=== PATIENT | male | born 1955 | race African-American/Black ===

== ENCOUNTER 2024-06-03 20:33 | Inpatient (IN) | payer OTHER ==
[~2024-06-03] VITALS: Ht 182.9 cm; Wt 77.6 kg
--- NOTE | 2024-06-03 21:16 | ED.PDOC ---
SOB-HPI HPI Comments A 58 year old male presents to the ED with the chief complaint of shortness of breath onset 4 days. Patient states he did Methamphetamine and since then has been experiencing shortness of breath and sore throat. During triage patients O2 sat was 96% on RA. Patient has a past medical history of HTN adn CHF. No other symptoms or modifying factors present at this time. Chief Complaint: Shortness of Breath Time Seen by MD: 20:58 Primary Care Provider: None Reviewed notes: Medications, Allergies Information Source: Patient Mode of Arrival: Ambulatory Severity: Moderate Timing: Days Duration: Since onset History of: CHF Prehospital treatment: None Associated Signs and Symptoms: Sore Throat Past Medical History PAST MEDICAL HISTORY: CHF, HTN Surgical History: Denies all surgeries Family History Family History: Reviewed,noncontributory to illness, No family hx of Cancer, No family hx of DM, No family hx of Heart loco, No family hx of HTN, No family hx ofKidney loco, No family hx of Liver loco, No family hx of Lung loco, No family hx of Stroke Social History Alcohol: Denies ETOH Use Drugs: Methamphetamine Lives In: Home Constitutional: denies: chills, diaphoresis, fatigue, fever, malaise, sweats, weakness, others EENTM: reports: throat pain; denies: blurred vision, double vision, ear bleeding, ear discharge, ear drainage, ear pain, ear ringing, eye pain, eye redness, hearing loss, mouth pain, mouth swelling, nasal discharge, nose bleeding, nose congestion, nose pain, photophobia, tearing, throat swelling, voice changes, others Respiratory: reports: shortness of breath; denies: cough, hemoptysis, orthopnea, SOB at rest, SOB with excertion, stridor, wheezing, others Cardiovascular: denies: chest pain, dizzy spells, diaphoresis, Dyspnea on exertion, edema, irregular heart beat, left arm pain, lightheadedness, palpitations, PND, syncope, others Gastrointestinal: denies: abdomen distended, abdominal pain, blood streaked bowels, constipated, diarrhea, dysphagia, difficulty swallowing, hematemesis, melena, nausea, poor appetite, poor fluid intake, rectal bleeding, rectal pain, vomiting, others Genitourinary: denies: burning, dysuria, flank pain, frequency, hematuria, incontinence, penile discharge, penile sore, pain, testicle pain, testicle swelling, urgency, others Neurological: denies: dizziness, fainting, headache, left sided numbness, left sided weakness, numbness, paresthesia, pre-existing deficit, right sided numbness, right sided weakness, seizure, speech problems, tingling, tremors, weakness, others Musculoskeletal: denies: back pain, gout, joint pain, joint swelling, muscle pain, muscle stiffness, neck pain, others Integumetry: denies: bruises, change in color, change in hair/nails, dryness, laceration, lesions, lumps, rash, wounds, others Allergic/Immunocompromised: denies: Difficulty Healing, Frequent Infections, Hives, Itching, others Hematologic/Lymphatic: denies: anemia, blood clots, easy bleeding, easy bruising, swollen glands, others Endocrine: denies: excessive hunger, excessive sweating, excessive thirst, excessive urination, flushing, intolerance to cold, intolerance to heat, unexplained weight gain, unexplained weight loss, others Psychiatric: denies: anxiety, bipolar disorder, depression, hopeless, panic disorder, schizophrenia, sleepless, suicidal, others All Other Systems: Reviewed and Negative Physical Exam General Appearance: No Apparent Distress, Normal HEENT: Normal ENT Inspection, Pharynx Normal, TMs Normal Neck: Full Range of Motion, Non-Tender, Normal, Normal Inspection Respiratory: Chest Non-Tender, Lungs Clear, No Accessory Muscle Use, No Respiratory Distress, Normal Breath Sounds Cardiovascular: No Edema, No JVD, No Murmur, No Gallop, Normal Peripheral Pulses, Regular Rate/Rhythm Breast Exam: Deferred Gastrointestinal: No Organomegaly, Non Tender, No Pulsatile Mass, Normal Bowel Sounds, Soft Genitalia: Deferred Pelvic: Deferred Rectal: Deferred Extremities: No calf tenderness, Normal capillary refill, Normal inspection, Normal range of motion, Non-tender, No pedal edema Musculoskeletal : Apperance: Normal Neurologic: Alert, interlacer II-XII nml as Tested, No Motor Deficits, Normal Affect, Normal Mood, No Sensory Deficits Cerebellar Function: Normal Reflexes: Normal Skin: Dry, Normal Color, Warm Lymphatic: No Adenopathy Was a procedure done? Was a procedure done?: No Differential Dx Differential Diagnosis: Asthma, Bronchitis, CHF, Myocardial infarction, Pneumonia, Sinusitis X-Ray, Labs, Meds, VS Vital Signs Date Time Temp Pulse Resp B/P (MAP) Pulse Ox O2 Delivery O2 Flow Rate FiO2 06/03/24 20:55 100 06/03/24 20:55 20 96 Room Air* 0 21 06/03/24 20:44 99.3 102 20 177/112 (133) 96 Lab Test 06/03/24 21:57 06/03/24 21:09 Range/Units Troponin I High Sensitivity 23 24 </=54 ng/L White Blood Count 9.1 4.4-10.8 10^3/uL Red Blood Count 4.68 4.5-5.90 10^6/uL Hemoglobin 13.4 L 13.5-17.5 g/dL Hematocrit 40.2 L 41.0-53.0 % Mean Corpuscular Volume 85.8 80.0-100.0 fL Mean Corpuscular Hemoglobin 28.7 28.0-32.0 pg Mean Corpuscular Hemoglobin Concent 33.4 32.0-36.0 g/dL Red Cell Distribution Width 15.1 H 11.8-14.3 % Platelet Count 218 140-450 10^3/uL Mean Platelet Volume 8.2 6.9-10.8 fL Neutrophils (%) (Auto) 67.1 37.0-80.0 % Lymphocytes (%) (Auto) 20.5 10.0-50.0 % Monocytes (%) (Auto) 11.3 0.0-12.0 % Eosinophils (%) (Auto) 0.5 0.0-7.0 % Basophils (%) (Auto) 0.6 0.0-2.0 % Neutrophils # (Auto) 6.1 1.6-8.6 10 ^3/uL Lymphocytes # (Auto) 1.9 0.4-5.4 10 ^3/uL Monocytes # (Auto) 1.0 0-1.3 10 ^3/uL Eosinophils # (Auto) 0 0-0.8 10 ^3/uL Basophils # (Auto) 0.1 0-0.2 10 ^3/uL Nucleated Red Blood Cells 0.1 % Sodium Level 140 136-145 mmol/L Potassium Level 3.8 3.5-5.1 mmol/L Chloride Level 107 98-107 mmol/L Carbon Dioxide Level 28 20-31 mmol/L Anion Gap 5 5-15 Blood Urea Nitrogen 13 9-23 mg/dL Creatinine 1.10 0.700-1.30 mg/dL Glomerular Filtration Rate Calc 73 >90 mL/min BUN/Creatinine Ratio 11.8 10.0-20.0 Serum Glucose 89 74-106 mg/dL Calcium Level 9.8 8.7-10.4 mg/dL B-Type Natriuretic Peptide 239.00 0-100 pg/mL [place] [address] Ph: [phone] DIAGNOSTIC IMAGING Diagnostic Imaging Report : [id number] Signed PATIENT: SEFERINO ALVARENGAACCT: [id number] UNIT: [id number] : 1955 LOC: ER ROOM / BED: / AGE / SEX: 68 / M ADM STATUS: REG ER SERVICE 01 ORDERING PHYSICIAN: BRIE HINES MD PROCEDURE(s): CXR2 - CHEST TWO VIEWS ROUTINE REASON: chest pain, sob ORDER NUMBER(s): [id number], ACCESSION NUMBER(s): [id number] XY CHEST TWO VIEWS ROUTINE CLINICAL HISTORY: chest pain, sob COMPARISON: None TECHNIQUE: Frontal and lateral view of the chest was obtained FINDINGS: Lines and Tubes: None Lungs: No focal consolidation. Minimal blunting of bilateral costophrenic angles. No pneumothorax. Cardiomediastinal contours: Unremarkable Bones: No acute osseous abnormality. IMPRESSION: Minimal blunting of bilateral costophrenic angles which may be from atelectasis. Otherwise, no evidence of acute cardiopulmonary disease. ATED BY: LEONORA BRENNAN DO DICTATED DATE/TIME: 06/03/242128 SIGNED BY: LEONORA BRENNAN DO SIGNED DATE/TIME: 06/03/242128 CC: Time of 1ST Reevaluation: 20:28 Reevaluation 1ST: Unchanged Patient Education/Counseling: Diagnosis, Treatment, Prognosis Family Education/Counseling: No Family Present Departure 1 Departure Time of Disposition: 23:50 (Patient presented with acute shortness of breath concerning for acute on chronic COPD Exacerbation, Pneumonia, ACS, CHF, Pneumothorax. Less likely PE, Dissection. Data: 1. I ordered and reviewed the result of at least 3 labs including a CBC, BMP, and Troponin. 2. I independently interpreted the following tests: Chest X-ray shows likely benign chest .Risk:This patient has a high risk of morbidity due to further diagnostic testing or treatment and may suffer from respiratory or cardiac etiology . W orkup reveals a likely COPD Exacerbation and patient should be admitted for further workup. and possible expert consultation.) Impression: Primary Impression: Chronic obstructive pulmonary disease with (acute) exacerbation Additional Impression: Hypoxia Disposition: ADMITTED INPATIENT Admit to: Med Surg Condition: Serious Critical Care Note Critical Care Time?: Yes Critical care comment: Acute Hypoxia Authorized and Performed by: Brie Hines MD Total critical care time: Approximately 38 minutes Due to a high probability of clinically significant, life threatening deterioration, the patient required my highest level of preparedness to intervene emergently and I personally spent this critical care time directly and personally managing the patient. This critical care time included obtaining a history; examining the patient; pulse oximetry; ordering and review of studies; arranging urgent treatment with development of a management plan; evaluation of patient's response to treatment; frequent reassessment; and, discussions with other providers. This critical care time was performed to assess and manage the high probability of imminent, life-threatening deterioration that could result in multi-organ failure. It was exclusive of separately billable procedures and treating other patients and teaching time. Please see my other sections and the rest of the note for further information on patient assessment and treatment. Stability Stability form required: No Heart Score Heart Score: Heart Score Response (Comments) Value History Moderate Suspicious 1 EKG Repolarization Disturb 1 Age >65 2 Risk Factors >3 or Hx ASHD 2 Troponin Normal limit 0 Total 6 I personally scribed for BRIE HINES MD ([email or web address]) on 06/03/24 at 21:15. Electronically submitted by Tess Dominguez ([email or web address]). I personally scribed for BRIE HINES MD ([email or web address]) on 06/03/24 at 21:40. Electronically submitted by Tess Dominguez ([email or web address]). BRIE HINES MD Jun 03, 2024 21:15
[2024-06-03 21:23] LABS: Basophils # (auto) 0.1 10 ^3/uL (0-0.2); Basophils % (auto) 0.6 % (0.0-2.0); Eosinophils # (auto) 0 10 ^3/uL (0-0.8); Eosinophils % (auto) 0.5 % (0.0-7.0); Hematocrit 40.2 % (41.0-53.0); Hemoglobin 13.4 g/dL (13.5-17.5); Lymphocytes # (auto) 1.9 10 ^3/uL (0.4-5.4); Lymphocytes % (auto) 20.5 % (10.0-50.0); Mean Corpuscular Hemoglobin 28.7 pg (28.0-32.0); Mean Corpuscular Hgb Conc. 33.4 g/dL (32.0-36.0); Mean Corpuscular Volume 85.8 fL (80.0-100.0); Monocytes % (auto) 11.3 % (0.0-12.0); Neutrophils # (auto) 6.1 10 ^3/uL (1.6-8.6); Neutrophils % (auto) 67.1 % (37.0-80.0); Nucleated Red Blood Cells % 0.1 %; Platelet Count (auto) 218 10^3/uL (140-450); Red Blood Cells 4.68 10^6/uL (4.5-5.90); Red Cell Distribution Width 15.1 % (11.8-14.3); White Blood Cell 9.1 10^3/uL (4.4-10.8)
[2024-06-03 21:32] LABS: Chloride 107 mmol/L (98-107); Potassium 3.8 mmol/L (3.5-5.1); Sodium 140 mmol/L (136-145)
--- NOTE | 2024-06-03 21:32 | DVH ---
XY CHEST TWO VIEWS ROUTINE CLINICAL HISTORY: chest pain, sob COMPARISON: None TECHNIQUE: Frontal and lateral view of the chest was obtained FINDINGS: Lines and Tubes: None Lungs: No focal consolidation. Minimal blunting of bilateral costophrenic angles. No pneumothorax. Cardiomediastinal contours: Unremarkable Bones: No acute osseous abnormality. IMPRESSION: Minimal blunting of bilateral costophrenic angles which may be from atelectasis. Otherwise, no evide nce of acute cardiopulmonary disease.
[2024-06-03 21:33] LABS: Anion Gap 5 (5-15); Calcium 9.8 mg/dL (8.7-10.4); Carbon Dioxide 28 mmol/L (20-31)
[2024-06-03 21:38] LABS: BUN/Creatinine Ratio 11.8 (10.0-20.0); Blood Urea Nitrogen 13 mg/dL (9-23); Glucose 89 mg/dL (74-106)
[2024-06-04] VITALS (7 sets, daily range): BP systolic 132–160; BP diastolic 82–97; PULSE 18–104; RESP 14–25; TEMP 98–98.7; O2SAT 94–97
[2024-06-04] MEDS: ACETAMINOPHEN 325 MG TAB PO ONE ×2 (03:30→07:55)
[2024-06-04 07:33] LABS: Urine Bacteria None Seen /hpf (None Seen)
[2024-06-04 08:18] LABS: Urine Blood Negative /uL (Negative); Urine Clarity Clear (Clear); Urine Color Yellow (Yellow); Urine Mucus FEW (None Seen); Urine Protein, UAD 1+ (Negative); Urine Specific Gravity 1.031 (1.001-1.035); Urine Urobilinogen 3 mg/dL (Negative); Urine WBC 31 /hpf (0 - 3)
[2024-06-04 08:30] LABS: Amphetamine Screen, Urine Pos (NEGATIVE); Barbiturate Scree,Urine Neg (NEGATIVE); Benzodiazephine Screen, Urine Neg (NEGATIVE); Cocaine Screen, Urine Neg (NEGATIVE)
[2024-06-04 08:31] LABS: Cannabinoid Screen, Urine Pos (NEGATIVE); Opiate Scree,Urine Neg (NEGATIVE); Phencyclidine Screen, Urine Neg (NEGATIVE)
--- NOTE | 2024-06-04 09:36 | ECG ---
[facility] Test Date: 2024-06-03 Test Time: 20:55:40 Pat Name: SEFERINO ALVARENGA Department: ER Room: [address] [place] [address] Gender: M [employer]: BERT : 1955 Requested By: BRIE NOLEN Order Number: [id number] Reading MD: Trung Vega Measurements Intervals [place] Rate: 100 P: 60 SD: 163 QRS: -28 QRSD: 110 T: 16 QT: 339 QTc: 438 Interpretive Statements Sinus tachycardia LVH with secondary repolarization abnormality Anterior ST elevation, probably due to LVH Electronically Signed On 06-05-2024 12:40:54 PST by Trung Vega Please click the below link to view image of tracing.
[2024-06-04] MEDS ORDERED: DOCUSATE SOD 100 MG CAP PO PRN (11:15)
[2024-06-04] MEDS ORDERED: MORPHINE SULFATE INJ 2 MG/ml SYRG IV PRN (11:15)
[2024-06-04] MEDS ORDERED: LISI10TA34 PO (11:15)
[2024-06-04] MEDS ORDERED: CARV6.2551 PO (11:15)
[2024-06-04] MEDS ORDERED: ACETAMINOPHEN 325 MG TAB PO PRN (11:15)
[2024-06-04] MEDS ORDERED: ONDANSETRON HCL 4 MG/2 ML VIAL IV PRN (11:15)
[2024-06-04] MEDS ORDERED: NITROGLYCERIN 0.4 MG SL TAB SL PRN (11:15)
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
[2024-06-04] MEDS: LISINOPRIL 5 MG TAB PO ONE (12:33)
[2024-06-04] MEDS: methylPREDNISolone SOD SUCC 40 MG/ML VL IV SCH (12:33)
[2024-06-04] MEDS: CARVEDILOL 3.125 MG TAB PO ONE (12:33)
[2024-06-04] MEDS: SODIUM CHLOR 0.9% PF (SALINE LOCK) 10ML VIAL/SYR IV SCH (14:00)
[2024-06-04] MEDS: AZITHROMYCIN 500MG/ 250ML 250 ML IV ONE (17:35)
[2024-06-04] MEDS: HYDROcodone-ACET 5/325MG TAB PO PRN (21:33)
[2024-06-04] MEDS: MONTELUKAST SODIUM 10 MG TAB PO SCH (21:34)
[2024-06-04] MEDS: CARVEDILOL 3.125 MG TAB PO SCH (21:35)
[2024-06-05] VITALS (12 sets, daily range): BP systolic 122–164; BP diastolic 77–97; PULSE 78–93; RESP 15–19; TEMP 97.8–98.5; O2SAT 90–98
[2024-06-05 05:40] LABS: Basophils # (auto) 0 10 ^3/uL (0-0.2); Basophils % (auto) 0.1 % (0.0-2.0); Eosinophils # (auto) 0 10 ^3/uL (0-0.8); Hematocrit 38.1 % (41.0-53.0); Hemoglobin 12.5 g/dL (13.5-17.5); Lymphocytes # (auto) 0.9 10 ^3/uL (0.4-5.4); Lymphocytes % (auto) 8.4 % (10.0-50.0); Mean Corpuscular Hemoglobin 28.4 pg (28.0-32.0); Mean Corpuscular Hgb Conc. 32.9 g/dL (32.0-36.0); Mean Corpuscular Volume 86.2 fL (80.0-100.0); Monocytes # (auto) 0.3 10 ^3/uL (0-1.3); Monocytes % (auto) 2.7 % (0.0-12.0); Neutrophils # (auto) 9.5 10 ^3/uL (1.6-8.6); Neutrophils % (auto) 88.8 % (37.0-80.0); Platelet Count (auto) 241 10^3/uL (140-450); Red Blood Cells 4.42 10^6/uL (4.5-5.90); Red Cell Distribution Width 14.7 % (11.8-14.3); White Blood Cell 10.7 10^3/uL (4.4-10.8)
[2024-06-05 05:52] LABS: Alanine Aminotransferase 11 U/L (7-40); Albumin 4.1 g/dL (3.2-4.8); Alkaline Phosphatase 77 U/L (46-116); Anion Gap 6 (5-15); Aspartate Aminotransferase 8 U/L (13-40); BUN/Creatinine Ratio 16.3 (10.0-20.0); Bilirubin, Total 0.5 mg/dL (0.2-1.0); Blood Urea Nitrogen 17 mg/dL (9-23); Calcium 9.8 mg/dL (8.7-10.4); Carbon Dioxide 28 mmol/L (20-31); Chloride 105 mmol/L (98-107); Glucose 154 mg/dL (74-106); Sodium 139 mmol/L (136-145); Total Protein 7.4 g/dL (5.7-8.2)
[2024-06-05] MEDS: LISINOPRIL 5 MG TAB PO SCH (08:54)
[2024-06-05] MEDS: THROAT LOZENGES(CEPASTAT) MT PRN (08:55)
[2024-06-05] MEDS: AZITHROMYCIN 500MG/ 250ML 250 ML IV SCH (08:55)
--- NOTE | 2024-06-05 11:20 | DVHPN2 ---
Subjective The patient is seen and examined at bedside. Complain of severe shortness of breath and he feels like his throat is closing because of phlegm. Reviewed: Care Plan, H&P, Labs, Medications, Previous Orders, Radiology Changes from previous H/P or p: No Changes Eyes: No Pain, No Vision change, No Conjunctivae inflammation, No Eyelid inflammation, No Other, No Redness ENT: No Ear pain, No Ear discharge, No Nose pain, No Nose discharge, No Nose congestion, No Mouth pain, No Mouth swelling, No Throat pain, No Throat swelling, No Other Cardiovascular: No Chest Pain, No Palpitations, No Orthopnea, No Paroxysmal Noc. Dyspnea, No Edema, No Lt Headedness, No Other Respiratory: No Cough, No Dry; Shortness of breath, SOB with excertion, W heezing; No Hemoptysis, No Pleuritic Pain, No Sputum, No Other Gastrointestinal: No Nausea, No Vomiting, No Abdominal Pain, No Diarrhea, No Constipation, No Melena, No Hematochezia, No Other Genitourinary: No Dysuria, No Frequency, No Incontinence, No Hematuria, No Retention, No Other Musculoskeletal: No other, No neck pain, No shoulder pain, No arm pain, No back pain, No hand pain, No leg pain, No foot pain Skin: No Rash, No Lesions, No Jaundice, No Bruising, No Other Objective Vitals Vital Signs Date Time Temp Pulse Resp B/P (MAP) Pulse Ox O2 Delivery O2 Flow Rate FiO2 06/05/24 10:00 91 Room Air* 0 21 06/05/24 09:26 98.5 93 17 145/77 (99) 98.5 Intake/Output Intake and Output 06/05/24 07:00 Intake Total 1925 ml Output Total 600 ml Balance 1325 ml Intake Oral 1675 ml IV Total 250 ml Output Urine Total 600 ml # Voids 1 General Appearance: Alert, Oriented X3, Cooperative, No acute distress HEENT: Atraumatic, PERRLA, EOMI, Mucous membr. moist/pink Neck: Supple Lungs: Clear to auscultation, Normal air movement Cardiovascular: Regular rate, Normal S1, Normal S2, No murmurs, Gallops, Rubs Abdomen: Normal bowel sounds, Soft, No tenderness, No hepatospenomegaly Neuro: Cranial nerves 3-12 NL Psych/Mental Status: Mental status NL Medications Current Medications Medications Dose Ordered Sig/Haley Route Start Time Stop Time Status Last Admin Dose Admin Sodium Chloride 10 ml Q8HR IV 06/04/24 14:00 06/05/24 05:16 10 ML Acetaminophen/ Hydrocodone Bitart 1 tab Q4HP PRN PO 06/04/24 11:15 06/05/24 02:16 1 TAB Ondansetron HCl 4 mg Q4HP PRN IV 06/04/24 11:15 Docusate Sodium 100 mg BIDPRN PRN PO 06/04/24 11:15 Acetaminophen 650 mg Q6HP PRN PO 06/04/24 11:15 Nitroglycerin 0.4 mg Q5MINP PRN SL 06/04/24 11:15 Morphine Sulfate 2 mg Q30M PRN IV 06/04/24 11:15 Ipratropium [place] 0.5 mg Q4HPRN PRN NEB 06/04/24 11:15 Albuterol 2.5 mg Q4HPRN PRN NEB 06/04/24 11:15 Montelukast Sodium 10 mg HS PO 06/04/24 22:00 06/04/24 21:34 10 MG Methylprednisolone Sodium Succinate 40 mg BID IV 06/04/24 11:15 06/05/24 08:52 40 MG Carvedilol 6.25 mg BID PO 06/04/24 22:00 06/05/24 08:53 6.25 MG Lisinopril 10 mg DAILY PO 06/05/24 10:00 06/05/24 08:54 10 MG Azithromycin 250 ml @ 125 mls/hr DAILY IV 06/05/24 10:00 06/05/24 08:55 125 MLS/HR Throat Lozenges 1 ana maria Q2HP PRN MT 06/04/24 19:30 06/05/24 08:55 1 ANA MARIA Laboratory Results Laboratory Tests 06/05/24 05:11 Chemistry Test 06/05/24 05:11 Albumin 4.1 g/dL (3.2-4.8) Calcium Level 9.8 mg/dL (8.7-10.4) Total Protein 7.4 g/dL (5.7-8.2) LFT Test 06/05/24 05:11 Alanine Aminotransferase (ALT) 11 U/L (7-40) Alkaline Phosphatase 77 U/L (46-116) Aspartate Amino Transferase (AST) 8 U/L (13-40) L Total Bilirubin 0.5 mg/dL (0.2-1.0) Urinalysis Test 06/04/24 06:40 Urine Color Yellow (Yellow) Urine Clarity Clear (Clear) Urine pH 6.0 (5.0-9.0) Urine Specific [place] 1.031 (1.001-1.035) Urine Protein 1+ (Negative) H Urine Ketones 2+ (Negative) H Urine Blood Negative /uL (Negative) Urine Nitrite Negative (Negative) Urine Bilirubin Negative (Negative) Urine Urobilinogen 3 mg/dL (Negative) H Urine Leukocyte Esterase 1+ /uL (Negative) Urine RBC 3 /hpf (0 - 3) Urine WBC 31 /hpf (0 - 3) Urine Squamous Epithelial Cells Few /hpf (<5) Urine Bacteria None seen /hpf (None Seen) Urine Mucus Few (None Seen) Urine Glucose Normal mg/dL (Normal) Labs and/or images reviewed: Labs reviewed by me Assessment/Plan Assessment/Plan Chronic obstructive pulmonary disease with (acute) exacerbation, CHF, Hypertension, Poly substance abuse, Continuing current management. Continuing with Solu-Medrol, DuoNeb, and IV antibiotic. And looking his throat is just some erytherma but no edema. I will give patient Cepacol lozenges. Continuing hypertensive medication. Advised the patient's stop using drugs Plan discussed with: Patient Date of Service: Jun 05, 2024 Billing Provider: MICHELLE ADAMS MD Common Visit Codes: [id number] INP/OBS CARE(HIGH) MICHELLE ADAMS MD Jun 05, 2024 11:20
[2024-06-05] MEDS: hydrALAZINE HCL 20 MG/ML VL IV PRN (14:12)
[2024-06-05] MEDS: IPRATROPIUM BROM 0.5 MG/2.5ML INH SOL ONE (20:43)
[2024-06-05] MEDS: ALBUTEROL SULF 2.5 MG/0.5ML(0.5%) NEB SOLN ONE (20:59)
[2024-06-06] VITALS (11 sets, daily range): BP systolic 146–172; BP diastolic 82–111; PULSE 60–86; RESP 18–22; TEMP 97.1–98.6; O2SAT 92–100
--- NOTE | 2024-06-06 11:56 | DVHPN2 ---
Subjective The patient is seen and examined at bedside. Still complain a lot of cough and phlegm. Complained of sore throat and lozenges did not help per patient Reviewed: Care Plan, H&P, Labs, Medications, Previous Orders Changes from previous H/P or p: No Changes Eyes: No Pain, No Vision change, No Conjunctivae inflammation, No Eyelid inflammation, No Other, No Redness ENT: No Ear pain, No Ear discharge, No Nose pain, No Nose discharge, No Nose congestion, No Mouth pain, No Mouth swelling, No Throat pain, No Throat swelling, No Other Cardiovascular: No Chest Pain, No Palpitations, No Orthopnea, No Paroxysmal Noc. Dyspnea, No Edema, No Lt Headedness, No Other Respiratory: No Cough, No Dry; Shortness of breath, SOB with excertion, W heezing; No Hemoptysis, No Pleuritic Pain, No Sputum, No Other Gastrointestinal: No Nausea, No Vomiting, No Abdominal Pain, No Diarrhea, No Constipation, No Melena, No Hematochezia, No Other Genitourinary: No Dysuria, No Frequency, No Incontinence, No Hematuria, No Retention, No Other Musculoskeletal: No other, No neck pain, No shoulder pain, No arm pain, No back pain, No hand pain, No leg pain, No foot pain Skin: No Rash, No Lesions, No Jaundice, No Bruising, No Other Objective Vitals Vital Signs Date Time Temp Pulse Resp B/P (MAP) Pulse Ox O2 Delivery O2 Flow Rate FiO2 06/06/24 10:45 152/82 06/06/24 10:44 84 06/06/24 10:00 92 Room Air* 0 21 06/06/24 09:00 98.6 20 98.6 Intake/Output Intake and Output 06/06/24 07:00 Intake Total 2122 ml Balance 2122 ml Intake Oral 1872 ml IV Total 250 ml # Voids 6 General Appearance: Alert, Oriented X3, Cooperative, No acute distress HEENT: Atraumatic, PERRLA, EOMI, Mucous membr. moist/pink Neck: Supple Lungs: Clear to auscultation, Normal air movement Cardiovascular: Regular rate, Normal S1, Normal S2, No murmurs, Gallops, Rubs Abdomen: Normal bowel sounds, Soft, No tenderness, No hepatospenomegaly Neuro: Cranial nerves 3-12 NL Psych/Mental Status: Mental status NL Medications Current Medications Medications Dose Ordered Sig/Haley Route Start Time Stop Time Status Last Admin Dose Admin Sodium Chloride 10 ml Q8HR IV 06/04/24 14:00 06/06/24 06:25 10 ML Acetaminophen/ Hydrocodone Bitart 1 tab Q4HP PRN PO 06/04/24 11:15 06/06/24 10:46 1 TAB Ondansetron HCl 4 mg Q4HP PRN IV 06/04/24 11:15 Docusate Sodium 100 mg BIDPRN PRN PO 06/04/24 11:15 Acetaminophen 650 mg Q6HP PRN PO 06/04/24 11:15 Nitroglycerin 0.4 mg Q5MINP PRN SL 06/04/24 11:15 Morphine Sulfate 2 mg Q30M PRN IV 06/04/24 11:15 Ipratropium [place] 0.5 mg Q4HPRN PRN NEB 06/04/24 11:15 Albuterol 2.5 mg Q4HPRN PRN NEB 06/04/24 11:15 Montelukast Sodium 10 mg HS PO 06/04/24 22:00 06/05/24 21:55 10 MG Methylprednisolone Sodium Succinate 40 mg BID IV 06/04/24 11:15 06/06/24 10:42 40 MG Carvedilol 6.25 mg BID PO 06/04/24 22:00 06/06/24 10:44 6.25 MG Lisinopril 10 mg DAILY PO 06/05/24 10:00 06/06/24 10:45 10 MG Azithromycin 250 ml @ 125 mls/hr DAILY IV 06/05/24 10:00 06/06/24 10:42 125 MLS/HR Throat Lozenges 1 ana maria Q2HP PRN MT 06/04/24 19:30 06/06/24 01:07 1 ANA MARIA Hydralazine HCl 10 mg Q6HP PRN IV 06/05/24 13:15 06/05/24 14:12 10 MG Laboratory Results Laboratory Tests 06/05/24 05:11 Urinalysis Test 06/04/24 06:40 Urine Color Yellow (Yellow) Urine Clarity Clear (Clear) Urine pH 6.0 (5.0-9.0) Urine Specific [place] 1.031 (1.001-1.035) Urine Protein 1+ (Negative) H Urine Ketones 2+ (Negative) H Urine Blood Negative /uL (Negative) Urine Nitrite Negative (Negative) Urine Bilirubin Negative (Negative) Urine Urobilinogen 3 mg/dL (Negative) H Urine Leukocyte Esterase 1+ /uL (Negative) Urine RBC 3 /hpf (0 - 3) Urine WBC 31 /hpf (0 - 3) Urine Squamous Epithelial Cells Few /hpf (<5) Urine Bacteria None seen /hpf (None Seen) Urine Mucus Few (None Seen) Urine Glucose Normal mg/dL (Normal) Labs and/or images reviewed: Labs reviewed by me Assessment/Plan Assessment/Plan Chronic obstructive pulmonary disease with (acute) exacerbation, CHF, Hypertension, Poly substance abuse, Continuing current management. Continuing with IV antibiotic Rocephin and Zithromax. Continuing with hypertensive medication. Continuing with Lasix. Continuing with DuoNeb every 6 hours as needed. Plan discussed with: Patient My Orders Orders - MICHELLE ADAMS MD Procedure Category Date Status Time Hydralazine Injection PHA 06/05/24 In Process (Apresoline Inject 13:15 Date of Service: Jun 06, 2024 Billing Provider: MICHELLE ADAMS MD Common Visit Codes: [id number] INP/OBS CARE(HIGH) MICHELLE ADAMS MD Jun 06, 2024 11:56
--- NOTE | 2024-06-06 14:16 | MEDREC ---
[facility] Intervention Section I [facility] Intervention: IV to PO conversion (PLEASE CONSIDER SWITCHING AZITHROMYCIN FROM IV TO PO FOR COPD EXACERBATION IF PATIENT CAN TOLERATE ) SAMARA GAO Jun 06, 2024 14:16
[2024-06-07] VITALS (9 sets, daily range): BP systolic 122–166; BP diastolic 66–98; PULSE 49–80; RESP 16–20; TEMP 97.4–97.9; O2SAT 92–98
[2024-06-07] MEDS: AZITHROMYCIN 250 MG TAB PO SCH (13:56)
--- NOTE | 2024-06-07 14:27 | DVHPN2 ---
Subjective The patient is seen and examined at bedside. Today he feels little bit better. Less shortness for breath. Less phlegm. Reviewed: Care Plan, H&P, Labs, Medications, Previous Orders, Radiology Changes from previous H/P or p: No Changes Eyes: No Pain, No Vision change, No Conjunctivae inflammation, No Eyelid inflammation, No Other, No Redness ENT: No Ear pain, No Ear discharge, No Nose pain, No Nose discharge, No Nose congestion, No Mouth pain, No Mouth swelling, No Throat pain, No Throat swelling, No Other Cardiovascular: No Chest Pain, No Palpitations, No Orthopnea, No Paroxysmal Noc. Dyspnea, No Edema, No Lt Headedness, No Other Respiratory: No Cough, No Dry; Shortness of breath, SOB with excertion, W heezing; No Hemoptysis, No Pleuritic Pain, No Sputum, No Other Gastrointestinal: No Nausea, No Vomiting, No Abdominal Pain, No Diarrhea, No Constipation, No Melena, No Hematochezia, No Other Genitourinary: No Dysuria, No Frequency, No Incontinence, No Hematuria, No Retention, No Other Musculoskeletal: No other, No neck pain, No shoulder pain, No arm pain, No back pain, No hand pain, No leg pain, No foot pain Skin: No Rash, No Lesions, No Jaundice, No Bruising, No Other Objective Vitals Vital Signs Date Time Temp Pulse Resp B/P (MAP) Pulse Ox O2 Delivery O2 Flow Rate FiO2 06/07/24 13:01 97.9 49 19 149/91 (110) 96 97.9 06/07/24 10:00 Room Air 0.0 06/07/24 10:00 21 Intake/Output Intake and Output 06/07/24 07:00 Intake Total 2520 ml Balance 2520 ml Intake Oral 2270 ml IV Total 250 ml # Voids 11 General Appearance: Alert, Oriented X3, Cooperative, No acute distress HEENT: Atraumatic, PERRLA, EOMI, Mucous membr. moist/pink Neck: Supple Lungs: Clear to auscultation, Normal air movement Cardiovascular: Regular rate, Normal S1, Normal S2, No murmurs, Gallops, Rubs Abdomen: Normal bowel sounds, Soft, No tenderness Neuro: Cranial nerves 3-12 NL Psych/Mental Status: Mental status NL Medications Current Medications Medications Dose Ordered Sig/Halye Route Start Time Stop Time Status Last Admin Dose Admin Sodium Chloride 10 ml Q8HR IV 06/04/24 14:00 06/07/24 13:09 10 ML Acetaminophen/ Hydrocodone Bitart 1 tab Q4HP PRN PO 06/04/24 11:15 06/07/24 13:56 1 TAB Ondansetron HCl 4 mg Q4HP PRN IV 06/04/24 11:15 Docusate Sodium 100 mg BIDPRN PRN PO 06/04/24 11:15 Acetaminophen 650 mg Q6HP PRN PO 06/04/24 11:15 Nitroglycerin 0.4 mg Q5MINP PRN SL 06/04/24 11:15 Morphine Sulfate 2 mg Q30M PRN IV 06/04/24 11:15 Ipratropium [place] 0.5 mg Q4HPRN PRN NEB 06/04/24 11:15 Albuterol 2.5 mg Q4HPRN PRN NEB 06/04/24 11:15 Montelukast Sodium 10 mg HS PO 06/04/24 22:00 06/06/24 22:23 10 MG Methylprednisolone Sodium Succinate 40 mg BID IV 06/04/24 11:15 06/07/24 09:29 40 MG Carvedilol 6.25 mg BID PO 06/04/24 22:00 06/07/24 09:28 6.25 MG Lisinopril 10 mg DAILY PO 06/05/24 10:00 06/07/24 09:29 10 MG Hydralazine HCl 10 mg Q6HP PRN IV 06/05/24 13:15 06/05/24 14:12 10 MG Throat Lozenges 1 jaya Q2HP PRN MT 06/06/24 13:15 Azithromycin 500 mg DAILY PO 06/07/24 14:00 06/07/24 13:56 500 MG Laboratory Results Laboratory Tests 06/05/24 05:11 Urinalysis Test 06/04/24 06:40 Urine Color Yellow (Yellow) Urine Clarity Clear (Clear) Urine pH 6.0 (5.0-9.0) Urine Specific [place] 1.031 (1.001-1.035) Urine Protein 1+ (Negative) H Urine Ketones 2+ (Negative) H Urine Blood Negative /uL (Negative) Urine Nitrite Negative (Negative) Urine Bilirubin Negative (Negative) Urine Urobilinogen 3 mg/dL (Negative) H Urine Leukocyte Esterase 1+ /uL (Negative) Urine RBC 3 /hpf (0 - 3) Urine WBC 31 /hpf (0 - 3) Urine Squamous Epithelial Cells Few /hpf (<5) Urine Bacteria None seen /hpf (None Seen) Urine Mucus Few (None Seen) Urine Glucose Normal mg/dL (Normal) Labs and/or images reviewed: Labs reviewed by me Assessment/Plan Assessment/Plan Chronic obstructive pulmonary disease with (acute) exacerbation, CHF, Hypertension, Poly substance abuse, Continuing current management. Continuing with Lasix. Continuing with IV antibiotic Rocephin and Zithromax. Continuing with Solu-Medrol. Continuing with nebulizer. Advised stop using drugs. Continuing hypertensive medication. Discharge planning. Plan discussed with: Patient My Orders Orders - MICHELLE ADAMS MD Procedure Category Date Status Time Azithromycin Tablet PHA 06/07/24 In Process (Zithromax Tablet) 14:00 Date of Service: Jun 08, 2024 Billing Provider: MICHELLE ADAMS MD Common Visit Codes: [id number] INP/OBS CARE(HIGH) MICHELLE ADAMS MD Jun 07, 2024 14:27
[2024-06-08] VITALS (12 sets, daily range): BP systolic 129–157; BP diastolic 66–104; PULSE 71–100; RESP 15–20; TEMP 98.1–98.5; O2SAT 94–99
[2024-06-08] MEDS: ALBUTEROL SULF 2.5 MG/0.5ML(0.5%) NEB SOLN NEB PRN (07:48)
[2024-06-08] MEDS: IPRATROPIUM BROM 0.5 MG/2.5ML INH SOL NEB PRN (07:51)
[2024-06-08] MEDS ORDERED: AZITHROMYCIN 250 MG TAB PO SCH (10:00)
[2024-06-08] MEDS: THROAT LOZENGES(CEPASTAT) MT PRN (21:07)
--- NOTE | 2024-06-08 23:02 | DVHPN2 ---
Subjective The patient is seen and examined at bedside. Feel better today. The patient is still have a little shortness for breath but able to ambulate to the door. Reviewed: Care Plan, H&P, Labs, Medications, Previous Orders Changes from previous H/P or p: No Changes Eyes: No Pain, No Vision change, No Conjunctivae inflammation, No Eyelid inflammation, No Other, No Redness ENT: No Ear pain, No Ear discharge, No Nose pain, No Nose discharge, No Nose congestion, No Mouth pain, No Mouth swelling, No Throat pain, No Throat swelling, No Other Cardiovascular: No Chest Pain, No Palpitations, No Orthopnea, No Paroxysmal Noc. Dyspnea, No Edema, No Lt Headedness, No Other Respiratory: No Cough, No Dry; Shortness of breath, SOB with excertion, W heezing; No Hemoptysis, No Pleuritic Pain, No Sputum, No Other Gastrointestinal: No Nausea, No Vomiting, No Abdominal Pain, No Diarrhea, No Constipation, No Melena, No Hematochezia, No Other Genitourinary: No Dysuria, No Frequency, No Incontinence, No Hematuria, No Retention, No Other Musculoskeletal: No other, No neck pain, No shoulder pain, No arm pain, No back pain, No hand pain, No leg pain, No foot pain Skin: No Rash, No Lesions, No Jaundice, No Bruising, No Other Objective Vitals Vital Signs Date Time Temp Pulse Resp B/P (MAP) Pulse Ox O2 Delivery O2 Flow Rate FiO2 06/08/24 21:07 100 156/91 06/08/24 21:00 98.1 18 96 98.1 06/08/24 20:00 Room Air* 0 21 Intake/Output Intake and Output 06/08/24 07:00 Intake Total 2880 ml Balance 2880 ml Intake Oral 2880 ml # Voids 5 # Bowel Movements 2 General Appearance: Alert, Oriented X3, Cooperative, No acute distress HEENT: Atraumatic, PERRLA, EOMI, Mucous membr. moist/pink Neck: Supple Lungs: Clear to auscultation, Normal air movement Cardiovascular: Regular rate, Normal S1, Normal S2, No murmurs, Gallops, Rubs Abdomen: Normal bowel sounds, Soft, No tenderness Neuro: Cranial nerves 3-12 NL Psych/Mental Status: Mental status NL Medications Current Medications Medications Dose Ordered Sig/Haley Route Start Time Stop Time Status Last Admin Dose Admin Sodium Chloride 10 ml Q8HR IV 06/04/24 14:00 06/08/24 21:06 10 ML Acetaminophen/ Hydrocodone Bitart 1 tab Q4HP PRN PO 06/04/24 11:15 06/08/24 10:11 1 TAB Ondansetron HCl 4 mg Q4HP PRN IV 06/04/24 11:15 Docusate Sodium 100 mg BIDPRN PRN PO 06/04/24 11:15 Acetaminophen 650 mg Q6HP PRN PO 06/04/24 11:15 Nitroglycerin 0.4 mg Q5MINP PRN SL 06/04/24 11:15 Morphine Sulfate 2 mg Q30M PRN IV 06/04/24 11:15 Ipratropium [place] 0.5 mg Q4HPRN PRN NEB 06/04/24 11:15 06/08/24 07:51 0.5 MG Albuterol 2.5 mg Q4HPRN PRN NEB 06/04/24 11:15 06/08/24 07:48 2.5 MG Montelukast Sodium 10 mg HS PO 06/04/24 22:00 06/08/24 21:06 10 MG Methylprednisolone Sodium Succinate 40 mg BID IV 06/04/24 11:15 06/08/24 21:06 40 MG Carvedilol 6.25 mg BID PO 06/04/24 22:00 06/08/24 21:07 6.25 MG Lisinopril 10 mg DAILY PO 06/05/24 10:00 06/08/24 10:09 10 MG Hydralazine HCl 10 mg Q6HP PRN IV 06/05/24 13:15 06/08/24 18:27 10 MG Throat Lozenges 1 ana maria Q2HP PRN MT 06/06/24 13:15 06/08/24 21:07 1 ANA MARIA Azithromycin 500 mg DAILY PO 06/07/24 14:00 06/08/24 10:09 500 MG Laboratory Results Laboratory Tests 06/05/24 05:11 Urinalysis Test 06/04/24 06:40 Urine Color Yellow (Yellow) Urine Clarity Clear (Clear) Urine pH 6.0 (5.0-9.0) Urine Specific [place] 1.031 (1.001-1.035) Urine Protein 1+ (Negative) H Urine Ketones 2+ (Negative) H Urine Blood Negative /uL (Negative) Urine Nitrite Negative (Negative) Urine Bilirubin Negative (Negative) Urine Urobilinogen 3 mg/dL (Negative) H Urine Leukocyte Esterase 1+ /uL (Negative) Urine RBC 3 /hpf (0 - 3) Urine WBC 31 /hpf (0 - 3) Urine Squamous Epithelial Cells Few /hpf (<5) Urine Bacteria None seen /hpf (None Seen) Urine Mucus Few (None Seen) Urine Glucose Normal mg/dL (Normal) Labs and/or images reviewed: Labs reviewed by me Assessment/Plan Assessment/Plan Chronic obstructive pulmonary disease with (acute) exacerbation, CHF, Hypertension, Poly substance abuse, Continuing current management. Continuing with Lasix. Continuing with IV antibiotic Rocephin and Zithromax. Continuing with Solu-Medrol. Continuing with nebulizer. Advised stop using drugs. Continuing hypertensive medication. Discharge planning. Plan discussed with: Patient Date of Service: Jun 08, 2024 Billing Provider: MICHELLE ADAMS MD Common Visit Codes: [id number] INP/OBS CARE(HIGH) MICHELLE ADAMS MD Jun 08, 2024 23:02
[2024-06-09] VITALS (7 sets, daily range): BP systolic 141–174; BP diastolic 84–102; PULSE 73–81; RESP 17–20; TEMP 97.8–98.5; O2SAT 94–99
[2024-06-09] MEDS ORDERED: AZIT-185 PO (11:25)
[2024-06-09] MEDS ORDERED: METH4PAK PO (11:25)
--- NOTE | 2024-06-09 11:27 | DVHDS2 ---
Discharge Summary Date of Admission Jun 04, 2024 at 11:06 Date of Discharge: Jun 09, 2024 Admitting Diagnosis Chronic obstructive pulmonary disease with (acute) exacerbation, CHF, Hypertension, Poly substance abuse, Labs/Diagnostic Data: Laboratory Results Test 06/05/24 05:11 06/04/24 06:40 06/04/24 00:10 06/03/24 21:09 White Blood Count 10.7 10^3/uL (4.4-10.8) Red Blood Count 4.42 10^6/uL (4.5-5.90) Hemoglobin 12.5 g/dL (13.5-17.5) Hematocrit 38.1 % (41.0-53.0) Mean Corpuscular Volume 86.2 fL (80.0-100.0) Mean Corpuscular Hemoglobin 28.4 pg (28.0-32.0) Mean Corpuscular Hemoglobin Concent 32.9 g/dL (32.0-36.0) Red Cell Distribution Width 14.7 % (11.8-14.3) Platelet Count 241 10^3/uL (140-450) Mean Platelet Volume 7.9 fL (6.9-10.8) Neutrophils (%) (Auto) 88.8 % (37.0-80.0) Lymphocytes (%) (Auto) 8.4 % (10.0-50.0) Monocytes (%) (Auto) 2.7 % (0.0-12.0) Eosinophils (%) (Auto) 0.0 % (0.0-7.0) Basophils (%) (Auto) 0.1 % (0.0-2.0) Neutrophils # (Auto) 9.5 10 ^3/uL (1.6-8.6) Lymphocytes # (Auto) 0.9 10 ^3/uL (0.4-5.4) Monocytes # (Auto) 0.3 10 ^3/uL (0-1.3) Eosinophils # (Auto) 0 10 ^3/uL (0-0.8) Basophils # (Auto) 0 10 ^3/uL (0-0.2) Nucleated Red Blood Cells 0.0 % Sodium Level 139 mmol/L (136-145) Potassium Level 4.0 mmol/L (3.5-5.1) Chloride Level 105 mmol/L (98-107) Carbon Dioxide Level 28 mmol/L (20-31) Anion Gap 6 (5-15) Blood Urea Nitrogen 17 mg/dL (9-23) Creatinine 1.04 mg/dL (0.700-1.30) Glomerular Filtration Rate Calc 78 mL/min (>90) BUN/Creatinine Ratio 16.3 (10.0-20.0) Serum Glucose 154 mg/dL (74-106) Calcium Level 9.8 mg/dL (8.7-10.4) Total Bilirubin 0.5 mg/dL (0.2-1.0) Aspartate Amino Transferase (AST) 8 U/L (13-40) Alanine Aminotransferase (ALT) 11 U/L (7-40) Alkaline Phosphatase 77 U/L (46-116) Total Protein 7.4 g/dL (5.7-8.2) Albumin 4.1 g/dL (3.2-4.8) Urine Color Yellow (Yellow) Urine Clarity Clear (Clear) Urine pH 6.0 (5.0-9.0) Urine Specific [place] 1.031 (1.001-1.035) Urine Protein 1+ (Negative) Urine Ketones 2+ (Negative) Urine Blood Negative /uL (Negative) Urine Nitrite Negative (Negative) Urine Bilirubin Negative (Negative) Urine Urobilinogen 3 mg/dL (Negative) Urine Leukocyte Esterase 1+ /uL (Negative) Urine RBC 3 /hpf (0 - 3) Urine WBC 31 /hpf (0 - 3) Urine Squamous Epithelial Cells Few /hpf (<5) Urine Bacteria None seen /hpf (None Seen) Urine Mucus Few (None Seen) Urine Glucose Normal mg/dL (Normal) Urine Opiates Screen Neg (NEGATIVE) Urine Fentanyl Screen Neg (NEGATIVE) Urine Barbiturates Screen Neg (NEGATIVE) Urine Phencyclidine Screen Neg (NEGATIVE) Urine Amphetamines Screen Pos (NEGATIVE) Urine Benzodiazepines Screen Neg (NEGATIVE) Urine Cocaine Screen Neg (NEGATIVE) Urine Cannabinoids Screen Pos (NEGATIVE) Troponin I High Sensitivity 22 ng/L (</=54) B-Type Natriuretic Peptide 239.00 pg/mL (0-100) Other Laboratory Tests 06/05/24 05:11 Brief Hx & Hospital Course: This is a 68 years old male with past medical history of hypertension, COPD, congestive heart failure came to emergency department because of severe shortness a breath. The patient said he came from [place] to visit his sister and decided to take some methamphetamine to keep him awake. Since the time he used methamphetamine he started having severe shortness a breath. He also used marijuana for about eight months. The patient now had some sore throat, flu- like symptoms, cough, congestion and right ear pain for four days. The patient's COVID is negative. The patient also had high blood pressure but did not take any medication. The patient was admitted. The patient was given IV antibiotic with Rocephin 1 g IV q.day and Zithromax 500 mg IV q.day. The patient was put on IV Solu-Medrol. The patient also was put on nebulizer with Atrovent and albuterol every 6 hours as needed. The patient also was started on Lasix IV. The patient subsequently doing well. Today he able to ambulate with no shortness a breath. No cough, no sore throat. We start the patient on high blood pressure medication in the hospital and we will write percussion for him to continuing at home. Advised the patient to stop using substance such as methamphetamine. Explained to him that can affect his heart and cause congestive heart failure worsening. Also advised the patient to stop smoking marijuana. I will discharge the patient home. Advised the patient to follow up with his primary care physician when he gets back to [place]. Advised him to stop using drugs. Activity as tolerated. Diet low-salt low-cholesterol diet. Physical exam: HEENT: Normocephalic atraumatic pupils equal react to light and accommodation. Extraocular muscles intact, conjunctiva pink, oropharynx moist, no thrush, no exudate. Lymphatic: No lymphadenopathy Cardiovascular exam: S1, S2 was heard. No murmurs, rubs, gallops Lung: Clear on auscultation bilaterally, no wheeze, rale, rhonchi. GI: Abdominal soft, nondistended, nontenderness, positive bowel sounds. Extremity: No crepitus, cyanosis, edema. Pedal pulses present bilateral. Full range of motion. Skin: Normal turgor, no rash. Psych: Alert, oriented x3. Neurology: No focal deficits, cranial nerve II to XII grossly intact. Condition at Discharge: Stable Final Diagnosis/Problems List Chronic obstructive pulmonary disease with (acute) exacerbation, CHF, Hypertension, Poly substance abuse, Discharge Disposition: Home Discharge Instruct/Medications Diet: Cardiac 2g Na,low cholest Activity: No Restrictions, As Tolerated Follow Up/Referral: pcp 1-2 weeks Medications: zpak until finish Medrodose joe until finish Coreg 6.5 mg bid Lisinopril 10mg daily Discharge Statement: "Patient was advised to return to the ER or call 911 if any headaches, dizziness, shortness of breath, chest pain, abdominal pain, bleeding, fevers, or worsening of medical condition. Patient was counseled about treatment plan, medications, possible side effects, patientverbalized understanding. All questions were answered to the best of my ability. This discharge took greater then 30 minutes in planning, reviewing documentation, counseling the patient, and discussing with other team members." ASSESSMENT ASSESSMENT Assessment COPD exacerbation Date of Service: Jun 09, 2024 Billing Provider: MICHELLE ADAMS MD Common Visit Codes: 76605-WVT/OBS DISCH DAY >30min MICHELLE ADAMS MD Jun 09, 2024 11:27
[2024-06-10] MEDS ORDERED: CARV6.2517 PO (12:13)
[2024-06-10] MEDS ORDERED: LISI10TA34 PO (12:14)
== END 2024-06-09 18:28 | disposition home or self-care (01) | DRG 191 ==
LOC: ER 20:33 → TELE 06-04 11:06 → TELE-E-ADS 06-04 13:20 → TELE-EAST 06-08 20:07
PROVIDERS: ADMIT Nurse Practitioner Family; ATTEND Internal Medicine
DX: J44.1 Chronic obstructive pulmonary disease with (acute) exacerbation (principal); J98.11 Atelectasis; I50.9 Heart failure, unspecified; I11.0 Hypertensive heart disease with heart failure; R09.02 Hypoxemia; F19.10 Other psychoactive substance abuse, uncomplicated
CPT/HCPCS: 36415; 71046; 80048; 80053; 80307; 81001; 83880; 84484; 85025; 93005; 94640; 99291; G0378